=== PATIENT | female | born 1965 | race Caucasian/White ===

== ENCOUNTER → 2019-01-10 | Outpatient (CLI) | payer BC ==
--- NOTE | 2019-01-10 11:06 | Diagnostic Imaging Report ---
TECHNIQUE: Magnetic resonance imaging of the RIGHT WRIST was performed WITHOUT injected contrast, on a 1.5 jillian magnet. HISTORY: Wrist pain COMPARISON: None available. FINDINGS: Limited due to motion artifact. Bone and bone marrow: No focal or infiltrative bone marrow replacing abnormality. No acute fracture or osteonecrosis. The osseous alignment is within normal limits. Joints: Fluid within the joints is within physiologic limits. The joints spaces are well maintained. Ligaments: Scapholunate: Intact Lunotriquetral: Intact Triangular fibrocartilage complex: Intact Extrinsic ligaments: Intact Tendons: Tendinopathy and tenosynovitis of the first extensor compartment. Carpal tunnel: The median nerve is within normal limits. Other soft tissues: 1.3 cm volar radiocarpal ganglion. IMPRESSION: Tendinopathy and tenosynovitis of the first extensor compartment ([place]) Signed by: Dr. Jem Russell M.D. on 01/10/2019 11:02 AM
== END ==
LOC: MRI 08:37
PROVIDERS: ATTEND Internal Medicine
DX: M25.431 Effusion, right wrist (principal); M65.831 Other synovitis and tenosynovitis, right forearm; M21.931 Unspecified acquired deformity of right forearm